=== PATIENT | female | born 1960 | race Caucasian/White ===

== ENCOUNTER 2018-01-03 20:55 | Emergency (ER) | payer MEDICAID ==
[~2018-01-03] VITALS: Ht 160 cm; Wt 64.0 kg
[2018-01-03 21:00] VITALS: Ht 160 cm; Wt 64.0 kg
[2018-01-03 21:53] VITALS: BP 140/79
== END 2018-01-03 21:53 | disposition home or self-care (01) ==
LOC: ED 20:55
DX: S51.011A Laceration without foreign body of right elbow, initial encounter (principal); M19.022 Primary osteoarthritis, left elbow; I10 Essential (primary) hypertension; E11.9 Type 2 diabetes mellitus without complications; W22.03XA Walked into furniture, initial encounter; Y93.89 Activity, other specified; Y92.89 Other specified places as the place of occurrence of the external cause; Y99.8 Other external cause status
CPT/HCPCS: 90715; J1100

== ENCOUNTER 2020-10-04 16:43 | Emergency (ER) | payer OTHER ==
[~2020-10-04] VITALS: Ht 152.4 cm; Wt 72.1 kg
[2020-10-04 16:59] VITALS: BP 154/74; Ht 152.4 cm; Wt 72.1 kg
[2020-10-04] MEDS ORDERED: GOOD NEIGHBOR P10 M1 PO (17:33)
[2020-10-04] MEDS ORDERED: ELIMITE5% TOP (17:33)
[2020-10-04] MEDS ORDERED: BENADRYL ALLERG25 M1 PO (17:33)
== END 2020-10-04 18:00 | disposition home or self-care (01) ==
LOC: ED 16:43
DX: R21 Rash and other nonspecific skin eruption (principal); L29.9 Pruritus, unspecified; I10 Essential (primary) hypertension; E11.9 Type 2 diabetes mellitus without complications